=== PATIENT | female | born 1945 | race Caucasian/White ===

== ENCOUNTER → 2019-10-10 10:35 | Outpatient (CLI) | payer MEDICARE, SELFPAY ==
[2019-10-11 20:29] LABS: COVID19 Sendout Not Detected (Not Detect)
== END ==
PROVIDERS: Family Provider Family Medicine; PCP Family Medicine; Visit Provider Nurse Practitioner
DX: Z11.59 Encounter for screening for other viral diseases (principal)
CPT/HCPCS: 87635

== ENCOUNTER 2019-10-14 11:49 | Inpatient (IN) | payer MEDICARE, SELFPAY ==
[2019-10-06 08:36] VITALS: BMI 31.7
[2019-10-13] VITALS (12 sets, daily range): BP systolic 139–172; BP diastolic 61–85; PULSE 66–80; RESP 13–23; TEMP 36.1–36.7; O2SAT 97–98; BMI 33.1
--- NOTE | 2019-10-13 | DI.RAD.S_ITS ---
PROCEDURE: XR KNEE LT 1TO2V INDICATIONS: LEFT TOTAL KNEE TECHNIQUE: 2 view(s) of the knee acquired. COMPARISON: None. FINDINGS: Bones: Patient is status post knee joint arthroplasty. Hardware components are in expected positions. Visualized bony structures are intact. Soft tissues: Overlying postoperative changes are noted. IMPRESSION: Expected immediate postoperative appearance, status post total left knee arthroplasty. Dictated by: Twin Verma M.D. on 10/13/2019 at 15:25 Approved by: Twin Verma M.D. on 10/13/2019 at 15:25
[2019-10-13] MEDS: LACTATED RINGERS 1,000 ML 42 ML IV (11:36)
[2019-10-13] MEDS: CELECOXIB 200 MG CAPSULE PO (11:49)
[2019-10-13] MEDS: ACETAMINOPHEN 325 MG TABLET 975 MG PO (11:49)
--- NOTE | 2019-10-13 12:33 | PM.PREOP ---
Pre-operative Note COVID-19 COVID-19 status: Negative Result date/Date tested (Pos, Neg/Pending): 10/10/19 Interval Note History & Physical reviewed/Exam performed by Physician: Yes Changes to H&P: No
--- NOTE | 2019-10-13 12:34 | P.OP_ITS ---
Operative Date/Time/Diagnoses Date of procedure: 10/13/19 Time of procedure: 14:48 Pre-op diagnosis: Left knee osteoarthritis Post-op diagnosis: same Procedure & Clinicians Procedure: Left total knee arthroplasty Same procedure as scheduled: Yes Indications: The patient presents today for total knee arthroplasty after failure of conservative treatment. The nature of the procedure including the risks and benefits, alternatives, postoperative course and expected outcome were discussed and all questions answered. Consent was obtained. Operative site confirmed and marked. Surgeon: Lloyd Woodson Director Of Procurement: To [employer] Anesthesia Type: General, Spinal and Local Operative Notes Findings: The patient had a good extension but poor flexion even under anesthesia. The knee would only flex to about 80?. A standard distal femoral cut was made. The femoral component was slightly undersized and translated 1.5 mm anteriorly to decompress the flexion space. A 11 mm cut was made off the le ss affected lateral side. The arthritis was much more severe than expected from the radiographs. The knee easily came out into full extension and could be flexed beyond 120? which was primarily limited by soft tissue impingement. Patellar tracking was excellent. Closure Type: primary Specimen(s): none sent Prosthetic devices, grafts, tissues, transplants, or devices: [employer] [facility] BCS: 5 femoral component, 3 tibial component, 10 mm BCS polyethylene tray and 32 x 9 mm round patella Applied: implant(s) Estimated Blood Loss (mL): 5 Blood products transfused: none Tourniquet time (min): 55 Procedure in detail: The patient was taken to the operative suite and placed under anesthesia. The patient was given prophylactic antibiotics prior to s urgery. The patient was also given tranexamic acid, 1 g, just prior to surgery for postoperative hemostasis. The lateral knee was prepped and the joint injected with 20 mL of 1% Lidocaine with epinephrine. The knee was then prepped and draped in usual sterile fashion. The leg was exsanguinated with an Esmarch dressing and the tourniquet raised to 300 torr. A 15 cm anterior incision was made. Next a medial trivector arthrotomy was made. The extensor mechanism was marked to ensure accurate repair. Initial exposing dissection was carried out medially and laterally. The knee was then flexed and the intramedullary femoral guide db placed. The distal femoral cut was made in 6? of valgus at the +0 position. The femoral size was measured and the appropriate cutting block was then placed and the anterior, posterior and chamfer cuts made. The femoral component was downsized slightly and translated anteriorly 1.5 mm to decompress the flexion space given her poor preoperative motion. The intramedullary tibial alignment db was then placed. The guide was set to remove approximately 11 mm from the less affected lateral side. The proximal tibial cut was then made with an oscillating saw. All meniscus and bony debris was then removed. Posterior femoral osteophytes removed with a curved osteotome. Flexion extension gaps were checked. No specific balancing was required other than routine exposure and removal of osteophytes. The soft tissues were then injected with a combination of 20 mL of half percent Marcaine with epinephrine and 20 mL of Exparel. The trial components were then placed. The knee was then extended and the patellar thickness was measured and a cut made removing approximately 9 mm of bone. The patella was then sized and drilled. Some excess lateral bone was excised and the patellofemoral ligament released. The knee went into full extension and flexion beyond 120?. There was excellent medial-lateral balance throughout motion. Patellar tracking was excellent. The trial components were removed and the knee was cleansed with Pulsavac irrigation and dried. The final components were cemented with high viscosity vacuum mixed bone cement with antibiotics. The joint was filled with a dilute Betadine solution. The knee was held in extension and the patellar clamped until the cement was adequately cured. The knee was then irrigated. The extensor mechanism was closed with 5 interrupted #1 Vicryl sutures and a running Quill suture at approximately 90 degrees of flexion. The joint was then injected with a combination of 1 g of tranexamic acid and 20 mL of quarter percent Marcaine with epinephrine. The subcutaneous tissue was closed with 2 0 Vicryl. The skin was closed with absorbable subcuticular sutures and surgical adhesive. An Aquacel dressing and Eagle wrap were then applied. The patient tolerated the procedure well and was returned to recovery room in good condition. Complications: none Post-operative Condition: stable Disposition: PACU Plan for aftercare: [facility] Protocol.
[2019-10-13] MEDS: CEFAZOLIN 2 GM/100 ML FROZ.PIGGY IV ×2 (13:21→20:40)
[2019-10-13] MEDS: LIDOCAINE 1% W/EPI 20 ML INJ (13:25)
[2019-10-13] MEDS: TRANEXAMIC ACID 1,000 MG VIAL 1000 MG IV (13:30)
--- NOTE | 2019-10-13 13:48 | SUR.OPER ---
Supine on padded OR bed. Pillow under head, arms secured on padded armboards <90 degree abduction. Safety belt across torso. Non-operative leg secured with tape over blanket over lower leg. Operative leg secured in DeMayo/Jun positioner. Foam padded brace at thigh of operative leg.
[2019-10-13] MEDS: BUPIVACAINE 0.25% W/ EPI (PF) 40 ML, BUPIVACAINE LIPOSOME 266 MG, SODIUM CHLORIDE 0.9% ... INJ (13:54)
[2019-10-13] MEDS: BUPIVACAINE 0.25% W/ EPI (PF) 20 ML, TRANEXAMIC ACID 1,000 MG, SODIUM CHLORIDE 0.9% 10 ML INJ (13:55)
[2019-10-13] MEDS: SODIUM CHLORIDE IRRIG SOLUTION 250 ML, POVIDONE-IODINE SPONGE STICKS 1 APPLIC IRR (13:57)
[2019-10-13] MEDS: LACTATED RINGERS 1,000 ML 100 ML IV (16:45)
[2019-10-13] MEDS: CARBIDOPA-LEVODOPA 25/100 TABLET 0.5 EACH PO (16:45)
[2019-10-13] MEDS: ACETAMINOPHEN 325 MG TABLET 650 MG PO ×2 (16:46→20:39)
[2019-10-13] MEDS: IBUPROFEN 400 MG TABLET PO ×2 (16:46→20:40)
[2019-10-13] MEDS: OXYCODONE IR 5 MG TABLET PO (18:08)
--- NOTE | 2019-10-13 20:09 | PC.NURSE ---
Patient resting in bed since back from PACU. Up to use the BSC to void, gait unsteady. Patient using bed burris until PT sees patient in the am. Pain controlled with oxycodone 5mg po. Patient has been A&O, calm and cooperative.
[2019-10-13] MEDS: ASPIRIN EC 81 MG TABLET PO (20:39)
[2019-10-13] MEDS: POTASSIUM CHLORIDE 10 MEQ TAB PO (20:39)
[2019-10-13] MEDS: DOCUSATE 100 MG CAPSULE PO (20:40)
[2019-10-14] VITALS (7 sets, daily range): BP systolic 112–143; BP diastolic 52–75; PULSE 65–77; RESP 16–18; TEMP 36.5–37.1; O2SAT 96–99
[2019-10-14] MEDS: IBUPROFEN 400 MG TABLET PO ×7 (00:48→23:55)
[2019-10-14] MEDS: LACTATED RINGERS 1,000 ML 100 ML IV (03:39)
[2019-10-14] MEDS: CEFAZOLIN 2 GM/100 ML FROZ.PIGGY IV (04:55)
[2019-10-14 05:45] LABS: Hematocrit 26.7 % (36-46)
--- NOTE | 2019-10-14 06:43 | P.PN_ITS ---
Subjective Subjective Date Patient Seen: 10/14/19 Time Patient Seen: 07:15 Interval history: Jessica is doing relatively well today. She just took some pain medication. Her pain has been reasonably well controlled. She is planning on discharge to a group home facility as she does not have much help from home. This is what she did after her total hip replacements. Exam Vital Signs (past 8 hours): - 10/13/19 23:15 10/14/19 03:00 Temperature 97.9 F 98.0 F Pulse Rate 66 71 Respiratory Rate 18 18 Blood Pressure 144/73 H 129/70 Pulse Oximetry 97 96 Oxygen Delivery Method Room Air Oxygen Flow Rate 0 Narrative Exam Narrative: The dressing is intact. There is expected swelling. The leg is neurovascularly intact. Objective Labs Result Diagrams: 10/14/19 05:25 Labs: Laboratory Results - last 24 hr 10/14/19 05:25 Hgb 9.0 L Hct 26.7 L Assessment & Plan Post-op Postoperative Procedures: Procedures Operation Date: 10/13/19 12:45 Actual Procedures Side Surgeon p Total Knee Arthroplasty Left Lloyd Woodson MD Postoperative day: 1 Postoperative plan narrative: Patient is progressing as expected after surgery. She would like to go to a group home facility which is reasonable given her situation. Discharge planning will work with her to see if she can go earlier needs to stay the full 3 days. Time Spent With Patient Time with patient: less than 15 minutes Quality VTE Deep Vein Thrombosis/Pulmonary Embolism Present on Admission: No
[2019-10-14] MEDS: OXYCODONE IR 5 MG TABLET PO ×4 (06:57→19:59)
[2019-10-14] MEDS: DOCUSATE 100 MG CAPSULE PO ×2 (09:01→19:59)
[2019-10-14] MEDS: POTASSIUM CHLORIDE 10 MEQ TAB PO ×2 (09:01→20:01)
[2019-10-14] MEDS: ACETAMINOPHEN 325 MG TABLET 650 MG PO ×3 (09:01→19:59)
[2019-10-14] MEDS: FUROSEMIDE 40 MG TABLET PO (09:02)
[2019-10-14] MEDS: ASPIRIN EC 81 MG TABLET PO ×2 (09:02→19:59)
[2019-10-14] MEDS: CARBIDOPA-LEVODOPA 25/100 TABLET 1 EACH PO (09:03)
--- NOTE | 2019-10-14 09:36 | PT.IIE ---
Current Diagnoses Bilateral primary osteoarthritis of knee (10/13/19) Surgery Performed Operation Date: 10/13/19 12:45 Actual Procedures p Total Knee Arthroplasty(Left) - Lloyd Woodson MD Surgical History (Last Updated 10/06/19 @ 09:19 by Bambi Curtis RN) History of bilateral tubal ligation (Acute) History of total left hip arthroplasty (Acute) History of total right hip arthroplasty (Acute) Hx of bilateral cataract extraction (Acute) Hx of cholecystectomy (Acute) Hx of repair of left rotator cuff (Acute) Hx of tonsillectomy (Acute) Medical History (Last Updated 10/06/19 @ 09:21 by Bambi Curtis RN) Dementia (Acute) Easy bruisability (Acute) Edema (Acute) Hearing impaired (Acute) Heart murmur (Acute) HTN (hypertension) (Acute) ALEX on CPAP (Acute) Pre-diabetes (Acute) RLS (restless legs syndrome) (Acute) Physical Therapy Inpatient Evaluation/Re-Eval M1 PT/OT-IP Prior Functional Status Start: 10/14/19 12:20 Freq: NEEDED Status: Active Protocol: Document 10/14/19 09:36 AB (Rec: 10/14/19 12:36 AB [id number]) Medical Review Prior Functional Status Medical History Reviewed Yes Communication able to make needs known Mobility and Gait pt stated that she is independent with all mobilities and ambulation without AD but has used a FWW for th elast month due to LE weakness Social History Household Members spouse,children Living Arrangements House Number of Floors (Floors) One Floor Number of Stairs To Enter/Railing? 1 step to enter Home Environment High Toilet,Walk in Shower,Tub /Shower,Built-In Shower Seat Home Equipment Front Wheel Walker,Straight Cane,Shower Seat with Backrest ,Hand Held Shower,Grab Bars In Shower Additional Social History Comment has safety bars in the toilet pt lives with her spouse and daughter; daughter works and will not be able to assist pt ; spouse is also not going to be able to assist pt due to his own medical issues pt has been sleeping on her recliner chair and plans to continue sleeping on chair upon d/c M2 PT-IP Current Condition Start: 10/14/19 12:20 Freq: NEEDED Status: Active Protocol: Document 10/14/19 09:36 AB (Rec: 10/14/19 12:36 AB [email or web address]) Physical Therapy Current Condition Current Condition Evaluation Date 10/14/19 Treatment Diagnosis s/p L TKA; difficulty in walking Onset Date 10/13/19 Weight Bearing Status Weight Bearing Status Weight Bear as Tolerated Allowed Weight Bearing Amount (enter % LLE WBAT or #) (%) M3 PT-IP Subjective Start: 10/14/19 12:20 Freq: NEEDED Status: Active Protocol: Document 10/14/19 09:36 AB (Rec: 10/14/19 12:36 AB [email or web address]) Subjective Physical Therapy Visit Type Type Initial Evaluation Visit Start Time 09:36 Visit Stop Time 10:24 Total Visit Minutes 48 Number of BALANCING MACHINE OPERATOR Visits 0 Physical Therapy Visit Comments Patient Comments pt is agreeable to do PT Therapy Pain Assessment Pain When Pain Assessed At Rest Pain Present Pain Present Pain Reported Location Left Knee Intensity 3 Scale Used Numeric (0 - 10) Pain Management Techniques Apply Cold,Modification of Treatment,Re-positioning, Timing of Activity with Medications M4 PT-IP Mobility and Gait Start: 10/14/19 12:20 Freq: NEEDED Status: Active Protocol: Document 10/14/19 09:36 AB (Rec: 10/14/19 12:36 AB [email or web address]) PT-Bed Mobility Assessment Supine to Sit Supine to Sit Standby Assistance,Head of Bed Elevated Scooting Scooting to Edge of Bed Maximum Assistance PT-Transfer Assessment Sit to and From Stand Sit to and from Stand Maximum Assistance,1 Person Assistance,Use of Upper Extremities Equipment Transfer Assistive Device Gait Belt,Front Wheeled Walker Orthotic/Prosthetic Devices or Brace: No Transfers Transfer Destination Chair Transfer Technique ambulated using FWW Transfer Ability Level of Assist Maximum Assistance,1 Person Assistance,Use of Upper Extremities Comments Mobility Comments pt is agreeable to do PT. completed L heel slides prior to mobility. pt with increase tightness on L knee. completed supine to sit with HOB elevated SBA. pt was able to sit on EOB CGA. required max A to scoot to EOB. completed sit to stand max A and cues. presents with increase posterior lean requiring max A for stability. instructed pt to sit back down. pt educated and instructed again for sit to stand and completed max A and max cues. continues to have increase posterior LOB requiring max A for repostioning and steadiness. pt was able to ambulate 5 ft using fWW max A and max cues. pt agreed to stay up on chair . call light and table placed within reach. Gait Assessment Gait Gait Assistance Required: Maximum Assistance,1 Person Assist Distance (Feet) 5 Able to Maintain Weight Bearing Status Yes During Gait Assistive Devices Assistive Device Gait Belt,Front Wheeled Walker Orthotic/Prosthetic Devices or Brace: No Gait Deviations General Gait Pattern Antalgic,Decreased Stride Length,Decreased Feet Clearance,Step-to Gait,Wide Based Gait Factors Limiting Gait Function Factors Limiting Gait Function Decreased Activity Tolerance, Decreased Sensation,Decreased Strength,Difficulty Following Directions,Limited Range of Motion,Pain,Poor Balance,Poor Safety Awareness PT-Balance Assessment Sitting Balance and Reactions Static Sitting Balance Ability Good Dynamic Sitting Balance Ability Fair Standing Balance and Reactions Static Standing Balance Ability Poor Dynamic Standing Balance Ability Poor Device Used FWW M5 PT-IP Objective Assessments Start: 10/14/19 12:20 Freq: NEEDED Status: Active Protocol: Document 10/14/19 09:36 AB (Rec: 10/14/19 12:36 [email or web address]) Orientation Orientation/Cognition Level of Alertness Alert Orientation Name,Place,Situation Language Function Ability Hard of Hearing Safety Awareness Decreased Safety Awareness Gross Range of Motion Lower Extremity ROM Assessment Left Impaired Impairments PROM: L knee flexion: ~ 50 deg Strength Lower Extremity Strength Assessment Bilaterally Impaired Comments Strength Comments RLE: 3+/5 LLE: 3+/5 Sensation Assessment Sensation Light Touch Impaired Proprioception (Position) Impaired Sensation Description Numbness Comments Sensation Comments stated decrease sensation on B feet and sometimes increases up to midleg area M6 PT-IP Treatment Start: 10/14/19 12:20 Freq: NEEDED Status: Active Protocol: Document 10/14/19 09:36 AB (Rec: 10/14/19 12:36 [email or web address]) Physical Therapy Treatment Exercises Exercises Heel Slides Education Education Provided Precautions,Weight Bearing Status,Post-Op Packet,Safety M7 PT-IP Assessment and Plan Start: 10/14/19 12:20 Freq: NEEDED Status: Active Protocol: Document 10/14/19 09:36 AB (Rec: 10/14/19 12:36 [email or web address]) PT Summary Assessment and Plan Potential Rehabilitation Potential Good Status of Condition at Evaluation Evolving Summary Impairments Pain,ROM,Strength,Balance, Coordination,Sensation,Tone, Cognition,Bed Mobility, Transfers,Gait,Activity Tolerance Assessment Summary pt requiring max A and max cues with all tasks. pt has family at home but daughter goes to work and pt's spouse has his own medical issues and will not be able assist pt. pt needs to be more independent than current level to be able to go home safely. Pt will require SNF rehab to improve strength and functional mobility. Goals Bed Mobility Goal Independent Transfer Goal Contact Guard Assistance,Front Wheeled Walker Gait Goal Contact Guard Assistance,Front Wheel Walker Gait Distance 100 Other Goals up/down 1 step using FWW CGA Days to Meet Goals 5 Frequency of Treatment Frequency Of Treatment Twice a Day Treatment Plan Physical Therapy Treatment Plan Bed Mobility Training,Transfer Training,Gait Training, Therapeutic Exercise,Balance Retraining,Post Op Education, Discharge Planning,Hot or Cold Pack,Neuromuscular Re-ed, Coordination Retraining,Manual Therapy Other Recommendations and Next Treatment ambulation, transfers Focus Recommendations To Nursing Amount of Assist Needed 1 Person Assist Discharge Recommendations PT Discharge Recommendations SNF Rehab Transportation Needs at Discharge Wheelchair/Cabulance
[2019-10-14] MEDS: polyethylene glycoL 3350 17 GM POWD.PACK PO (11:24)
[2019-10-14] MEDS: CARBIDOPA-LEVODOPA 25/100 TABLET 0.5 EACH PO ×2 (13:06→17:00)
--- NOTE | 2019-10-14 13:30 | PT.IPTN ---
Current Diagnoses Bilateral primary osteoarthritis of knee (10/14/19) Surgery Performed Operation Date: 10/13/19 12:45 Actual Procedures p Total Knee Arthroplasty(Left) - Lloyd Woodson MD Physical Therapy Treatment Note M2 PT-IP Current Condition Start: 10/14/19 12:20 Freq: NEEDED Status: Active Protocol: Document 10/14/19 09:36 AB (Rec: 10/14/19 12:36 AB [email or web address]) Physical Therapy Current Condition Current Condition Evaluation Date 10/14/19 Treatment Diagnosis s/p L TKA; difficulty in walking Onset Date 10/13/19 Weight Bearing Status Weight Bearing Status Weight Bear as Tolerated Allowed Weight Bearing Amount (enter % LLE WBAT or #) (%) M3 PT-IP Subjective Start: 10/14/19 12:20 Freq: NEEDED Status: Active Protocol: Document 10/14/19 13:30 AB (Rec: 10/14/19 14:55 AB [email or web address]) Subjective Physical Therapy Visit Type Type Treatment Note Visit Start Time 13:30 Visit Stop Time 13:59 Total Visit Minutes 29 Number of BULK STATION AGENT Visits 0 Physical Therapy Visit Comments Patient Comments pt is agreeable to do PT Therapy Pain Assessment Pain When Pain Assessed At Rest Pain Present Pain Present Pain Reported Location Left Knee Intensity 4 Scale Used Numeric (0 - 10) Pain Management Techniques Re-positioning,Timing of Activity with Medications M4 PT-IP Mobility and Gait Start: 10/14/19 12:20 Freq: NEEDED Status: Active Protocol: Document 10/14/19 13:30 AB (Rec: 10/14/19 14:55 AB [email or web address]) PT-Bed Mobility Assessment Supine to Sit Supine to Sit Standby Assistance Sit to Supine Sit to Supine Contact Guard Assistance Scooting Scooting to Edge of Bed Minimal Assistance PT-Transfer Assessment Sit to and From Stand Sit to and from Stand Moderate Assistance,Maximum Assistance,1 Person Assistance ,Use of Upper Extremities Equipment Transfer Assistive Device Gait Belt,Front Wheeled Walker Orthotic/Prosthetic Devices or Brace: No Comments Mobility Comments pt completed supine to sit SBA with HOB elevated. pt was able to scoot on EOB min A and cues. completed sit to stand max A and max cues. pt continues to have increase posterior trunk leaning requiring max A and max cues. pt ambulated ~ 12 ft using FWW max A and max cues. pt has decrease motor planning and required cues for safety. Gait Assessment Gait Gait Assistance Required: Moderate Assistance,Maximum Assistance,1 Person Assist Distance (Feet) 12 Able to Maintain Weight Bearing Status Yes During Gait Assistive Devices Assistive Device Gait Belt,Front Wheeled Walker Orthotic/Prosthetic Devices or Brace: No Gait Deviations General Gait Pattern Antalgic,Decreased Stride Length,Decreased Feet Clearance,Step-to Gait,Wide Based Gait Factors Limiting Gait Function Factors Limiting Gait Function Decreased Activity Tolerance, Decreased Sensation,Decreased Strength,Difficulty Following Directions,Limited Range of Motion,Pain,Poor Balance,Poor Safety Awareness,Respiratory Distress Comments Gait Comments pls refer to mobility section for details M5 PT-IP Objective Assessments Start: 10/14/19 12:20 Freq: NEEDED Status: Active Protocol: Document 10/14/19 09:36 AB (Rec: 10/14/19 12:36 AB [email or web address]) Orientation Orientation/Cognition Level of Alertness Alert Orientation Name,Place,Situation Language Function Ability Hard of Hearing Safety Awareness Decreased Safety Awareness Gross Range of Motion Lower Extremity ROM Assessment Left Impaired Impairments PROM: L knee flexion: ~ 50 deg Strength Lower Extremity Strength Assessment Bilaterally Impaired Comments Strength Comments RLE: 3+/5 LLE: 3+/5 Sensation Assessment Sensation Light Touch Impaired Proprioception (Position) Impaired Sensation Description Numbness Comments Sensation Comments stated decrease sensation on B feet and sometimes increases up to midleg area M6 PT-IP Treatment Start: 10/14/19 12:20 Freq: NEEDED Status: Active Protocol: Document 10/14/19 13:30 AB (Rec: 10/14/19 14:55 AB [email or web address]) Physical Therapy Treatment Exercises Exercises Heel Slides Education Education Provided Safety Other Treatments Other Treatment Performed completed heel slides with end range hold. pt continues to be limited knee flexion to ~ 40-50 degrees PROM. pt educated on heel slides and to do intermittent movement as much as possible on L knee M7 PT-IP Assessment and Plan Start: 10/14/19 12:20 Freq: NEEDED Status: Active Protocol: Document 10/14/19 13:30 AB (Rec: 10/14/19 14:55 AB [email or web address]) PT Summary Assessment and Plan Potential Rehabilitation Potential Good Summary Impairments Pain,ROM,Strength,Balance, Coordination,Sensation,Tone, Cognition,Bed Mobility, Transfers,Gait,Activity Tolerance Progress Towards Goals Slow Progress due to Pain,Slow Progress due to Activity Tolerance,Slow Progress - Other Assessment Summary pt progressing slowly with mobility. able to walk more this afternoon but still limited and was only able to complete 12 ft; continues to require max A with sit to stand and mod to max A and max cues with ambulation. pt will require SNF rehab to improve strength and functional independence. Goals Bed Mobility Goal Independent Transfer Goal Contact Guard Assistance,Front Wheeled Walker Gait Goal Contact Guard Assistance,Front Wheel Walker Gait Distance 100 Other Goals up/down 1 step using FWW CGA Days to Meet Goals 5 Frequency of Treatment Frequency Of Treatment Twice a Day Treatment Plan Physical Therapy Treatment Plan Bed Mobility Training,Transfer Training,Gait Training, Therapeutic Exercise,Balance Retraining,Post Op Education, Discharge Planning,Hot or Cold Pack,Neuromuscular Re-ed, Coordination Retraining,Manual Therapy Other Recommendations and Next Treatment ambulation, transfers Focus Recommendations To Nursing Amount of Assist Needed 1 Person Assist Discharge Recommendations PT Discharge Recommendations SNF Rehab Transportation Needs at Discharge Wheelchair/Cabulance
--- NOTE | 2019-10-14 15:14 | CM.IDA ---
Initial DCP Assessment Note Patient is a 74 yo female, resident of [place]. Patient is POD#1 from left knee surgery with Dr Woodson. Patient has been switched from SDC to inpatient status as of today 10.14.19. Patient w/Parkinson's Disease and Parkinson's dementia per notes (mild). Met w/patient this afternoon, spouse Mina joined by phone. Introduced HIGHWAY MAINTENANCE WORKER role. Patient lives at home w/her spouse and adult dtr, who works time stamp assembler in [place]. Spouse Mina explains to this HIGHWAY MAINTENANCE WORKER that caring for patient, leading up to this surgery, has become difficult for him d/t his own health issues. D/t patient's pain, patient has become fairly sedentary at home requiring assist for ADLs; bathing, dressing, chores/cooking. Both patient and spouse hopeful patient can DC to [facility]. Spouse has contacted Nallley at [facility] to request bed hold. Contacted August and she confirmed she had tentatively held bed, now confirms that patient has a bed available Friday, will need updated COVID-19 kenji done before DC. P: DC expected Friday, to [facility] via w/c. HIGHWAY MAINTENANCE WORKER team following closely. PASRR still needed. CATINA Tamez Discharge Planning/Care Management CM Discharge Assessment Start: 10/14/19 15:10 Freq: Status: Active Protocol: Document 10/14/19 15:10 [email or web address] (Rec: 10/14/19 15:14 [email or web address] [id number]) Discharge Planning Assessment Assigned Special Certificate Dictator CATINA Fairchild DPOA/Assigned Designee Name Mina Parada, spouse Contact Information [phone] Advance Directives? Yes Advance Directives on File No History Provided By Patient,Significant Other Prior Living Arrangements House Household Members spouse,children Independent with ADL's No: Spouse needs to assist recently d/t pain Is patient alert and oriented? Yes Needs Assistance With Bathing,Grooming,Meal Prep, Managing Medications,Home Chores / Shopping Patient/Family Preference Alf Facility Barriers to Discharge Yes Comment Spouse and dtr unable to assist, patient has Parkinsons w/some dementia and requiring max assist and max cues today during PT eval Discharge Plan Alf Facility Transportation Arrangement Likely w/c Referrals Initiated Alf Additional Comment [facility] per patient/spouse request
[2019-10-14] MEDS: SODIUM CHLORIDE 0.9% FLUSH 10 ML IV (20:01)
[2019-10-15] MEDS: OXYCODONE IR 5 MG TABLET PO ×4 (04:02→20:10)
[2019-10-15] MEDS: IBUPROFEN 400 MG TABLET PO ×5 (05:39→20:13)
--- NOTE | 2019-10-15 07:37 | PM.PNPO.1 ---
Subjective Subjective Date Patient Seen: 10/15/19 Time Patient Seen: 07:37 Interval history: Jessica is postop day 2 after her left knee replacement. She is having a fair amount of pain but does seem to be better today. She is still having difficulty ambulating. Exam Vital Signs (past 8 hours): Oxygen Delivery Method Room Air Oxygen Flow Rate 0 Narrative Exam Narrative: The dressing is intact. There is expected swelling. The leg is neurovascularly intact. Objective Labs Result Diagrams: 10/14/19 05:25 Assessment & Plan Post-op Postoperative Procedures: Procedures Operation Date: 10/13/19 12:45 Actual Procedures Side Surgeon p Total Knee Arthroplasty Left Lloyd Woodson MD Postoperative day: 2 Postoperative plan narrative: Jessica is progressing reasonably well after surgery but still has difficulty ambulating and will not be able to discharged directly to home. Plan is for skilled nurse facility either tomorrow or Friday. Time Spent With Patient Time with patient: less than 15 minutes Quality VTE Deep Vein Thrombosis/Pulmonary Embolism Present on Admission: No
[2019-10-15 08:24] VITALS: BP 150/77; PULSE 80; RESP 17; TEMP 37.2; O2SAT 95
[2019-10-15] MEDS: DOCUSATE 100 MG CAPSULE PO ×2 (09:13→20:10)
[2019-10-15] MEDS: ACETAMINOPHEN 325 MG TABLET 650 MG PO ×3 (09:13→20:10)
[2019-10-15] MEDS: ASPIRIN EC 81 MG TABLET PO ×2 (09:13→20:10)
[2019-10-15] MEDS: SODIUM CHLORIDE 0.9% FLUSH 10 ML IV ×2 (09:14→20:17)
[2019-10-15] MEDS: POTASSIUM CHLORIDE 10 MEQ TAB PO ×2 (09:14→20:10)
[2019-10-15] MEDS: FUROSEMIDE 40 MG TABLET PO (09:14)
[2019-10-15] MEDS: CARBIDOPA-LEVODOPA 25/100 TABLET 1 EACH PO (09:20)
--- NOTE | 2019-10-15 09:25 | PT.IPTN ---
Current Diagnoses Bilateral primary osteoarthritis of knee (10/14/19) Surgery Performed Operation Date: 10/13/19 12:45 Actual Procedures p Total Knee Arthroplasty(Left) - Lloyd Woodson MD Physical Therapy Treatment Note M2 PT-IP Current Condition Start: 10/14/19 12:20 Freq: NEEDED Status: Active Protocol: Document 10/14/19 09:36 AB (Rec: 10/14/19 12:36 AB [id number]) Physical Therapy Current Condition Current Condition Evaluation Date 10/14/19 Treatment Diagnosis s/p L TKA; difficulty in walking Onset Date 10/13/19 Weight Bearing Status Weight Bearing Status Weight Bear as Tolerated Allowed Weight Bearing Amount (enter % LLE WBAT or #) (%) M3 PT-IP Subjective Start: 10/14/19 12:20 Freq: NEEDED Status: Active Protocol: Document 10/15/19 09:25 AB (Rec: 10/15/19 11:01 AB [email or web address]) Subjective Physical Therapy Visit Type Type Treatment Note Visit Start Time 09:25 Visit Stop Time 10:07 Total Visit Minutes 42 Number of SHAPER MACHINE HAND Visits 0 Physical Therapy Visit Comments Patient Comments pt agreeable to do PT Therapy Pain Assessment Pain When Pain Assessed At Rest Location Left Knee Intensity 6 Scale Used increases to 8/10 with movement Pain Management Techniques Apply Cold,Distraction, Modification of Treatment,Re- positioning,Timing of Activity with Medications M4 PT-IP Mobility and Gait Start: 10/14/19 12:20 Freq: NEEDED Status: Active Protocol: Document 10/15/19 09:25 AB (Rec: 10/15/19 11:01 AB [id number]) PT-Bed Mobility Assessment Supine to Sit Supine to Sit Standby Assistance,Head of Bed Elevated Scooting Scooting to Edge of Bed Minimal Assistance PT-Transfer Assessment Sit to and From Stand Sit to and from Stand Maximum Assistance,1 Person Assistance,Use of Upper Extremities Equipment Transfer Assistive Device Gait Belt,Front Wheeled Walker Orthotic/Prosthetic Devices or Brace: No Transfers Transfer Destination Chair Transfer Technique ambulated using FWW Transfer Ability Level of Assist Moderate Assistance,Maximum Assistance,1 Person Assistance ,Use of Upper Extremities Comments Mobility Comments completed HEP with pt. completed supine to sit SBA with HOB elevated. required min A for scooting to EOB. pt continues to have increase posterior trunk lean in sitting and standing. requiring min A for repositioning in sitting and max cues. completed sit to stand max A and cues. max A to maintain standing balance. cued to COG awareness and correcting posterior trunk lean. pt tends to pull on FWW and not push down for support . max cues needed for positioning and using FWW. ambulated in room using FWW ~ 12 ft mod A and cues. pt requested to sit down. positioned on chair. call light and table placed within reach. Gait Assessment Gait Gait Assistance Required: Moderate Assistance,1 Person Assist Distance (Feet) 12 Able to Maintain Weight Bearing Status Yes During Gait Assistive Devices Assistive Device Gait Belt,Front Wheeled Walker Orthotic/Prosthetic Devices or Brace: No Gait Deviations General Gait Pattern Step-to Gait Factors Limiting Gait Function Factors Limiting Gait Function Decreased Activity Tolerance, Decreased Strength,Difficulty Following Directions, Incoordination,Limited Range of Motion,Pain,Poor Balance, Poor Safety Awareness, Respiratory Distress Comments Gait Comments pls refer to mobility section for details. requires cues for increase LE elevation, maintaining standing balance to decrease posterior trunk lean and for proper use of FWW . Pt refused further activity after ambulation. M5 PT-IP Objective Assessments Start: 10/14/19 12:20 Freq: NEEDED Status: Active Protocol: Document 10/14/19 09:36 AB (Rec: 10/14/19 12:36 AB [id number]) Orientation Orientation/Cognition Level of Alertness Alert Orientation Name,Place,Situation Language Function Ability Hard of Hearing Safety Awareness Decreased Safety Awareness Gross Range of Motion Lower Extremity ROM Assessment Left Impaired Impairments PROM: L knee flexion: ~ 50 deg Strength Lower Extremity Strength Assessment Bilaterally Impaired Comments Strength Comments RLE: 3+/5 LLE: 3+/5 Sensation Assessment Sensation Light Touch Impaired Proprioception (Position) Impaired Sensation Description Numbness Comments Sensation Comments stated decrease sensation on B feet and sometimes increases up to midleg area M6 PT-IP Treatment Start: 10/14/19 12:20 Freq: NEEDED Status: Active Protocol: Document 10/15/19 09:25 AB (Rec: 10/15/19 11:01 AB [email or web address]) Physical Therapy Treatment Exercises Exercises Ankle Pumps,Quad Sets,Heel Slides,Straight Leg Raises, Short Arc Quads Education Education Provided Safety M7 PT-IP Assessment and Plan Start: 10/14/19 12:20 Freq: NEEDED Status: Active Protocol: Document 10/15/19 09:25 AB (Rec: 10/15/19 11:01 [email or web address]) PT Summary Assessment and Plan Potential Rehabilitation Potential Good Summary Impairments Pain,ROM,Strength,Balance, Coordination,Sensation,Tone, Cognition,Bed Mobility, Transfers,Gait,Activity Tolerance Progress Towards Goals Slow Progress due to Pain,Slow Progress due to Medical Issues,Slow Progress due to Activity Tolerance Assessment Summary pt is progressing slowly but continues to require mod to max A with all mobilities. pt stated that she has PD making it hard for her to move. pt will require SNF rehab to improve strength and functional independence. Goals Bed Mobility Goal Independent Transfer Goal Contact Guard Assistance,Front Wheeled Walker Gait Goal Contact Guard Assistance,Front Wheel Walker Gait Distance 100 Other Goals up/down 1 step using FWW CGA Days to Meet Goals 5 Frequency of Treatment Frequency Of Treatment Twice a Day Treatment Plan Physical Therapy Treatment Plan Bed Mobility Training,Transfer Training,Gait Training, Therapeutic Exercise,Balance Retraining,Post Op Education, Discharge Planning,Hot or Cold Pack,Neuromuscular Re-ed, Coordination Retraining,Manual Therapy Other Recommendations and Next Treatment ambulation, transfers Focus Recommendations To Nursing Amount of Assist Needed 1 Person Assist Discharge Recommendations PT Discharge Recommendations SNF Rehab Transportation Needs at Discharge Wheelchair/Cabulance
--- NOTE | 2019-10-15 12:53 | PT.IPTN ---
Current Diagnoses Bilateral primary osteoarthritis of knee (10/14/19) Surgery Performed Operation Date: 10/13/19 12:45 Actual Procedures p Total Knee Arthroplasty(Left) - Lloyd Woodson MD Physical Therapy Treatment Note M2 PT-IP Current Condition Start: 10/14/19 12:20 Freq: NEEDED Status: Active Protocol: Document 10/14/19 09:36 AB (Rec: 10/14/19 12:36 AB [email or web address]) Physical Therapy Current Condition Current Condition Evaluation Date 10/14/19 Treatment Diagnosis s/p L TKA; difficulty in walking Onset Date 10/13/19 Weight Bearing Status Weight Bearing Status Weight Bear as Tolerated Allowed Weight Bearing Amount (enter % LLE WBAT or #) (%) M3 PT-IP Subjective Start: 10/14/19 12:20 Freq: NEEDED Status: Active Protocol: Document 10/15/19 12:53 AB (Rec: 10/15/19 14:11 AB [id number]) Subjective Physical Therapy Visit Type Type Treatment Note Visit Start Time 12:53 Visit Stop Time 13:37 Total Visit Minutes 44 Number of GEOPHYSICS TEACHER Visits 0 Physical Therapy Visit Comments Patient Comments pt is agreeable to do PT Therapy Pain Assessment Pain When Pain Assessed At Rest Location Left Knee Scale Used pain scale not stated Pain Management Techniques Apply Cold,Modification of Treatment,Re-positioning, Timing of Activity with Medications M4 PT-IP Mobility and Gait Start: 10/14/19 12:20 Freq: NEEDED Status: Active Protocol: Document 10/15/19 12:53 AB (Rec: 10/15/19 14:11 AB [id number]) PT-Transfer Assessment Sit to and From Stand Sit to and from Stand Moderate Assistance,Maximum Assistance,1 Person Assistance ,Use of Upper Extremities Gait Assessment Gait Gait Assistance Required: Moderate Assistance,1 Person Assist Distance (Feet) 25 Able to Maintain Weight Bearing Status Yes During Gait Assistive Devices Assistive Device Gait Belt,Front Wheeled Walker Orthotic/Prosthetic Devices or Brace: No Gait Deviations General Gait Pattern Antalgic,Ataxic,Decreased Stride Length,Decreased Feet Clearance Factors Limiting Gait Function Factors Limiting Gait Function Decreased Activity Tolerance, Decreased Strength,Difficulty Following Directions,Limited Range of Motion,Pain,Poor Balance,Poor Safety Awareness Comments Gait Comments pt sitting on chair and agreed to do PT. completed LE exercises sitting: LAQs and heel slide with end range hold . completed sit to stand mod A to max A and max cues. ambulated in room using FWW 25 ft mod A and max cues to increase LE elevation, weight shifting and using UE on FWW for steadiness especially during turns. completed sit <>stand x 5 reps with initial mod to max and after 3 reps, was able to complete with just mod A but continues to require max cues. pt requested to stay up on chair. call light and table placed within reach. M5 PT-IP Objective Assessments Start: 10/14/19 12:20 Freq: NEEDED Status: Active Protocol: Document 10/14/19 09:36 AB (Rec: 10/14/19 12:36 AB [id number]) Orientation Orientation/Cognition Level of Alertness Alert Orientation Name,Place,Situation Language Function Ability Hard of Hearing Safety Awareness Decreased Safety Awareness Gross Range of Motion Lower Extremity ROM Assessment Left Impaired Impairments PROM: L knee flexion: ~ 50 deg Strength Lower Extremity Strength Assessment Bilaterally Impaired Comments Strength Comments RLE: 3+/5 LLE: 3+/5 Sensation Assessment Sensation Light Touch Impaired Proprioception (Position) Impaired Sensation Description Numbness Comments Sensation Comments stated decrease sensation on B feet and sometimes increases up to midleg area M6 PT-IP Treatment Start: 10/14/19 12:20 Freq: NEEDED Status: Active Protocol: Document 10/15/19 12:53 AB (Rec: 10/15/19 14:11 AB [id number]) Physical Therapy Treatment Exercises Exercises Heel Slides,Seated Knee Flexion/Extension Education Education Provided Precautions,Safety M7 PT-IP Assessment and Plan Start: 10/14/19 12:20 Freq: NEEDED Status: Active Protocol: Document 10/15/19 12:53 AB (Rec: 10/15/19 14:11 [id number]) PT Summary Assessment and Plan Potential Rehabilitation Potential Good Summary Impairments Pain,ROM,Strength,Balance, Coordination,Sensation,Tone, Cognition,Bed Mobility, Transfers,Gait,Activity Tolerance Progress Towards Goals Slow Progress due to Pain,Slow Progress due to Medical Issues,Slow Progress due to Activity Tolerance Assessment Summary pt is progressing slowly with mobility but continues to require mod to max A and has decrease activity tolerance. pt has other contributing medical condition affecting progress and mobility. pt will require SNF rehab to improve strength and functional independence. Goals Bed Mobility Goal Independent Transfer Goal Contact Guard Assistance,Front Wheeled Walker Gait Goal Contact Guard Assistance,Front Wheel Walker Gait Distance 100 Other Goals up/down 1 step using FWW CGA Days to Meet Goals 5 Frequency of Treatment Frequency Of Treatment Twice a Day Treatment Plan Physical Therapy Treatment Plan Bed Mobility Training,Transfer Training,Gait Training, Therapeutic Exercise,Balance Retraining,Post Op Education, Discharge Planning,Hot or Cold Pack,Neuromuscular Re-ed, Coordination Retraining,Manual Therapy Other Recommendations and Next Treatment ambulation, transfers Focus Recommendations To Nursing Amount of Assist Needed 1 Person Assist Discharge Recommendations PT Discharge Recommendations SNF Rehab Transportation Needs at Discharge Wheelchair/Cabulance
[2019-10-15] MEDS: CARBIDOPA-LEVODOPA 25/100 TABLET 0.5 EACH PO ×2 (13:06→17:48)
[2019-10-15 13:30] VITALS: BP 105/45; PULSE 66; RESP 18; TEMP 36.8; O2SAT 97
--- NOTE | 2019-10-15 14:45 | OT.IP.EVAL ---
Current Diagnoses Bilateral primary osteoarthritis of knee (10/14/19) Surgery Performed Operation Date: 10/13/19 12:45 Actual Procedures p Total Knee Arthroplasty(Left) - Lloyd Woodson MD Past Medical History (Last Updated 10/06/19 @ 09:21 by Bambi Curtis, RN) Dementia (Acute) Easy bruisability (Acute) Edema (Acute) Hearing impaired (Acute) Heart murmur (Acute) HTN (hypertension) (Acute) ALEX on CPAP (Acute) Pre-diabetes (Acute) RLS (restless legs syndrome) (Acute) Surgical History (Last Updated 10/06/19 @ 09:19 by Bambi Curtis RN) History of bilateral tubal ligation (Acute) History of total left hip arthroplasty (Acute) History of total right hip arthroplasty (Acute) Hx of bilateral cataract extraction (Acute) Hx of cholecystectomy (Acute) Hx of repair of left rotator cuff (Acute) Hx of tonsillectomy (Acute) Occupational Therapy Inpatient Evaluation/Re-Eval M1 PT/OT-IP Prior Functional Status Start: 10/15/19 14:53 Freq: NEEDED Status: Active Protocol: Document 10/15/19 14:27 [facility] (Rec: 10/15/19 15:20 [facility] [id number]) Medical Review Prior Functional Status Medical History Reviewed Yes Communication able to make needs known Mobility and Gait pt stated that she is independent with all mobilities and ambulation without AD but has used a FWW for the last month due to LE weakness Activities of Daily Living and IADL's Pt states was able to do all her ADL's prior to surgery. Social History Household Members spouse,children Living Arrangements House Number of Floors (Floors) One Floor Number of Stairs To Enter/Railing? 1 step to enter Home Environment High Toilet,Walk in Shower,Tub /Shower,Built-In Shower Seat Home Equipment Front Wheel Walker,Straight Cane,Shower Seat with Backrest ,Hand Held Shower,Long Handled Sponge,Long Handled Shoe Horn ,Automatic Engraver,Sock Aid,Grab Bars In Shower Additional Social History Comment has safety bars in the toilet pt lives with her spouse and daughter; daughter works and will not be able to assist pt ; spouse is also not going to be able to assist pt due to his own medical issues pt has been sleeping on her recliner chair and plans to continue sleeping on chair upon d/c M2 OT-IP Current Condition Start: 10/15/19 14:53 Freq: Status: Active Protocol: Document 10/15/19 14:27 [facility] (Rec: 10/15/19 15:20 [facility] [id number]) Occupational Therapy Current Condition Current Condition Evaluation Date 10/15/19 Treatment Diagnosis s/p L TKA, decreased mobility Weight Bearing Status Weight Bearing Status Weight Bear as Tolerated M3 OT- IP Subjective and Pain Start: 10/15/19 14:53 Freq: Status: Active Protocol: Document 10/15/19 14:27 [facility] (Rec: 10/15/19 15:20 [facility] [id number]) OT- Subjective Occupational Therapy Visit Type Type Initial Evaluation Visit Start Time 14:27 Visit Stop Time 14:45 Total Visit Minutes 18 Occupational Therapy Visit Comments Patient Comments Pt agreed to do OT eval. Patient/Caregiver Goals TO go to skilled rehab prior to going home. OT Pain Assessment Pain When Pain Assessed At Rest Pain Present Pain Present Denied Pain M4 OT- IP ADL's Start: 10/15/19 14:53 Freq: Status: Active Protocol: Document 10/15/19 14:27 [facility] (Rec: 10/15/19 15:20 [facility] [id number]) OT LQI-Iyij-Aafsrmu General Evaluation Self-Feeding Ability Independent OT ADL-Grooming Comments OT Grooming Comments Pt states did prior. OT ADL-Dressing General Eval Lower Body Dressing Ability Maximum Assistance Areas Needing Assistance Socks Comments OT Dressing Comments Pt states has all LB dressing equipment from prior hip surgery, to practice for LB dressing needs tomorrow as pt too tired to try today. OT ADL-Toileting Comments OT Toileting Comments Pt not having to go. OT ADL-Bathing Comments OT Bathing Comments NOt at this time. M5 OT- IP IADL's Start: 10/15/19 14:53 Freq: Status: Active Protocol: Document 10/15/19 14:27 [facility] (Rec: 10/15/19 15:20 [facility] [id number]) OT-Instrumental Activities of Daily Living Home Safety Awareness Home Safety Comments At this time pt a bit slow to respond and having a hard time to recall sequence and safety or how to come to stand. Medication Management Medication Management Caregiver Provides Supervision Money Management Money Management Caregiver Provides Assistance Meal Preparation Meal Preparation Caregiver Provides Assist Chief Meteorologist Chief Meteorologist Caregiver Provides Assist M6 OT- IP Functional Cognition Start: 10/15/19 14:53 Freq: Status: Active Protocol: Document 10/15/19 14:27 [facility] (Rec: 10/15/19 15:20 [facility] [email or web address]) Cognitive Factors Limiting Selfcare Function Cognitive Ability Level of Alertness Alert Patient Orientation Name,Place,Situation Attention Span Ability Capable of Focused Attention, Capable of Sustained Attention Ability to Follow Commands Able to Follow One Step Commands Memory Description Short Term Impaired Problem Solving Ability Needs Assist to Identify Solutions Cognitive Comments Cognitive Assessment Comments Pt a bit forgetful and needing reminders for safety cues , sequencing for safety to come to stand to FWW. M7 OT- IP Mobility and Balance Start: 10/15/19 14:53 Freq: Status: Active Protocol: Document 10/15/19 14:27 [facility] (Rec: 10/15/19 15:20 [facility] [email or web address]) OT-Transfer Assessment Sit to and From Stand Sit to and from Stand Moderate Assistance Comments Mobility Comments MODA to stand to FWW. OT- Balance Assessment Sitting Balance and Reactions Static Sitting Balance Ability Good Dynamic Sitting Balance Ability Fair Standing Balance and Reactions Static Standing Balance Ability Poor M8 OT- IP Objective Assessments Start: 10/15/19 14:53 Freq: Status: Active Protocol: Document 10/15/19 14:27 [facility] (Rec: 10/15/19 15:20 [facility] [email or web address]) OT Gross Range of Motion Upper Extremity Range of Motion Assessment Within Functional Limits OT Strength Upper Extremity Strength Assessment Within Functional Limits OT-Muscle Tone Assessment Muscle Tone WNL Yes M9 OT- IP Assessment and Plan Start: 10/15/19 14:53 Freq: Status: Active Protocol: Document 10/15/19 14:27 [facility] (Rec: 10/15/19 15:20 [facility] [email or web address]) OT Summary Assessment and Plan Potential Rehabilitation Potential Good Analytic Complexity at Evaluation Low Summary OT Impairments Pain Progress Towards Goals Slow Progress due to Activity Tolerance,Slow Progress due to Cognition Assessment Summary Pt low complexity and and main barrier are a step, now needing extensive assist for mobility and ADl needs. Pt's not able to physically assist her. Therefore pt will benefit from skilled rehab. Pt has good potential and motivation to get better. Goals Grooming Goal Independent Dressing Goal Independent Toileting Goal Independent Bathing Goal Independent Toilet Transfer Goal Independent Shower Transfer Goal Independent Patient/Caregiver Education Goal Demonstrate Post-Op Precautions Days to Meet Goals 15 Frequency of Treatment Frequency Of Treatment Once a Day Treatment Plan OT Treatment Plan ADL Training,Functional Cognition Training,Functional Mobility,Patient/Family Education,Discharge Planning Other Treatment Recommendations and Next Stand at sink, practice LB Treatment Focus dressing equipment. Discharge Recommendations OT Discharge Recommendations Home with Assistance Home Equipment Needs defer to skilled Transportation Needs at Discharge Private Vehicle,Wheelchair/ Cabulance
[2019-10-15 15:40] VITALS: BP 108/55; PULSE 65; RESP 22; TEMP 36.4; O2SAT 97
--- NOTE | 2019-10-15 15:56 | CM.DPNOTE ---
DCP Cont According to Nallely at [facility], patient has been accepted for admission Friday. Will need updated COVID test. PASRR completed. Need to updated patient and spouse. JW
[2019-10-15 20:00] VITALS: BP 125/69; PULSE 66; RESP 22; TEMP 36.8; O2SAT 100
[2019-10-16] VITALS (8 sets, daily range): BP systolic 120–144; BP diastolic 51–80; PULSE 55–74; RESP 14–18; TEMP 35.8–36.7; O2SAT 96–99
[2019-10-16] MEDS: IBUPROFEN 400 MG TABLET PO ×5 (01:39→17:58)
--- NOTE | 2019-10-16 08:52 | P.DS_ITS ---
History of Present Illness History of Present Illness Date Patient Seen: 10/16/19 Time Patient Seen: 08:52 Chief complaint: Left Total Knee Arthroplasty *OPB* Narrative: The patient presents today for total knee arthroplasty after failure of conservative treatment. The nature of the procedure including the risks and benefits, alternatives, postoperative course and expected outcome were discussed and all questions answered. Consent was obtained. Operative site confirmed and marked. Discharge Providers Provider Date of admission: 10/14/19 11:49 Discharge Date: 10/16/19 Primary care physician: Nazario Marie MD Consults: 10/13/19 15:37 Consult to Discharge Planning Routine Comment: Consult to Physical Therapy Evaluate & Treat Comment: Physician Instructions: postop TKA protocol Consult to Respiratory Therapy Evaluate & Treat Comment: Physician Instructions: Evaluate and treat 10/15/19 11:38 Consult to Occupational Therapy Evaluate & Treat Comment: Physician Instructions: Evaluate and treat Discharge provider: To Delcid PA-C Summary Hospital Course Discharge Diagnosis: Left knee osteoarthritis Hospital Course: rocedure: Left total knee arthroplasty Same procedure as scheduled: Yes Indications: The patient presents today for total knee arthroplasty after failure of conservative treatment. The nature of the procedure including the risks and benefits, alternatives, postoperative course and expected outcome were discussed and all questions answered. Consent was obtained. Operative site confirmed and marked. Surgeon: Lloyd Woodson Adult Neuropsychologist: To Delcid Anesthesia Type: General, Spinal and Local Operative Notes Findings: The patient had a good extension but poor flexion even under anesthesia. The knee would only flex to about 80?. A standard distal femoral cut was made. The femoral component was slightly undersized and translated 1.5 mm anteriorly to decompress the flexion space. A 11 mm cut was made off the less affected lateral side. The arthritis was much more severe than expected from the radiographs. The knee easily came out into full extension and could be flexed beyond 120? which was primarily limited by soft tissue impingement. Patellar tracking was excellent. Closure Type: primary Specimen(s): none sent Prosthetic devices, grafts, tissues, transplants, or devices: [employer] BCS: 5 femoral component, 3 tibial component, 10 mm BCS polyethylene tray and 32 x 9 mm round patella Applied: implant(s) Estimated Blood Loss (mL): 5 Blood products transfused: none Tourniquet time (min): 55 Patient admitted to the hospital for left total knee arthroplasty. Patient consented to the same. Patient taken to the operating room October 13, 2019. Patient back in her room recovering well as in stable condition status post left total knee arthroplasty. Patient has reportedly by physical therapy made slow progress due to pain, slow progress due to medical issues as well as due to activity intolerance. Physical therapy has recommended [facility]. Status at Discharge Cognitive/behavioral status at discharge: at baseline, oriented Functional status at discharge: uses cane/walker Overall status at discharge: patient is progressing back to baseline Time Spent with Patient Time spent: Less than 30 minutes Exam Vital Signs (past 8 hours): - 10/16/19 03:40 10/16/19 07:25 Temperature 97.9 F 98.0 F Pulse Rate 70 74 Respiratory Rate 18 16 Blood Pressure 144/51 H 135/73 Pulse Oximetry 97 98 Oxygen Delivery Method Room Air Oxygen Flow Rate 0 Objective Labs Result Diagrams: 10/14/19 05:25 Discharge Plan Discharge Plan Patient Disposition: SNF Transfer to: [facility] Under care of provider: Dr. Woodson Consult as needed: Dental, Hearing, Podiatry and Vision Discharge comment: DC to SNF in stable condition status post left TKA Discharge orders & Medications Prescriptions: New acetaminophen 325 mg Tablet 650 mg PO TID Qty: 60 RF: 0 aspirin 81 mg Tablet,Delayed Release (Dr/Ec) 81 mg PO BID Qty: 60 RF: 0 ibuprofen 400 mg Tablet 400 mg PO Q4HR Qty: 60 RF: 0 docusate sodium [DOK] 100 mg Capsule 100 mg PO BID Qty: 20 RF: 0 oxycodone 5 mg Tablet 5 mg PO Q3HR PRN (Reason: Pain, Moderate (4-6)) Qty: 60 RF: 0 Continued potassium chloride 10 mEq Capsule, Extended Release 10 meq PO BID RF: 0 furosemide 80 mg Tablet 40 mg PO DAILY RF: 0 carbidopa-levodopa 25-100 mg Tablet 1 tab PO SEEINSTR RF: 0 Discontinued acetaminophen [Acetaminophen Pain Relief] 500 mg Tablet 1,000 mg PO DAILY RF: 0 ibuprofen 200 mg Tablet 200 - 400 mg PO DAILY RF: 0 Follow up/Referrals: Lloyd Woodson MD [Physician] - 2 Weeks Nazario Marie MD [Primary Care Provider] - Discharge Health Status Multidrug resistant organism: No MDRO Diet/Activity/Treatments Diet: Regular Activity: May progress weight-bearing and activity as tolerated. Daily knee range of motion exercises. Cold/Heat Therapy: May ice the knee for 20 minutes at a time as needed for pain Skin/Wound/Dressing Care Report to your healthcare provider any signs of infection, such as:: chills, fever, increased pain, unusual drainage and unusual redness Dressing: May leave dressing in place for 7 days. May shower over the dressing. Special Rehabilitation Services Reason for rehabilitation: Post-operative therapy and Recovery r/t decondition Rehab type: Physical therapy Visit Report/Discharge Packet Instructions: DI for Knee Replacement, DI for Prescription Opioid Use Stand Alone Forms: Surgery Discharge Discharge Data Primary Care Provider: Nazario Marie VTE Deep Vein Thrombosis/Pulmonary Embolism Present on Admission: No
--- NOTE | 2019-10-16 08:55 | P.DS_ITS ---
History of Present Illness History of Present Illness Chief complaint: Left Total Knee Arthroplasty *OPB* Narrative: The patient presents today for total knee arthroplasty after failure of conservative treatment. The nature of the procedure including the risks and benefits, alternatives, postoperative course and expected outcome were discussed and all questions answered. Consent was obtained. Operative site confirmed and marked. Discharge Providers Provider Date of admission: 10/14/19 11:49 Discharge Date: 10/16/19 Primary care physician: Nazario Marie MD Consults: 10/13/19 15:37 Consult to Discharge Planning Routine Comment: Consult to Physical Therapy Evaluate & Treat Comment: Physician Instructions: postop TKA protocol Consult to Respiratory Therapy Evaluate & Treat Comment: Physician Instructions: Evaluate and treat 10/15/19 11:38 Consult to Occupational Therapy Evaluate & Treat Comment: Physician Instructions: Evaluate and treat Discharge provider: To Delcid PA-C Summary Hospital Course Discharge Diagnosis: Left knee DJD Hospital Course: Procedure: Left total knee arthroplasty Same procedure as scheduled: Yes Indications: The patient presents today for total knee arthroplasty after failure of conservative treatment. The nature of the procedure including the risks and benefits, alternatives, postoperative course and expected outcome were discussed and all questions answered. Consent was obtained. Operative site confirmed and marked. Surgeon: Lloyd Woodson [employer] Shift Superintendent: To Delcid Anesthesia Type: General, Spinal and Local Operative Notes Findings: The patient had a good extension but poor flexion even under anest hesia. The knee would only flex to about 80?. A standard distal femoral cut was made. The femoral component was slightly undersized and translated 1.5 mm anteriorly to decompress the flexion space. A 11 mm cut was made off the less affected lateral side. The arthritis was much more severe than expected from the radiographs. The knee easily came out into full extension and could be flexed beyond 120? which was primarily limited by soft tissue impingement. Patellar tracking was excellent. Closure Type: primary Specimen(s): none sent Prosthetic devices, grafts, tissues, transplants, or devices: [employer] BCS: 5 femoral component, 3 tibial component, 10 mm BCS polyethylene tray and 32 x 9 mm round patella Applied: implant(s) Estimated Blood Loss (mL): 5 Blood products transfused: none Tourniquet time (min): 55 Patient admitted to the hospital for left total knee arthroplasty. Patient consented to the same. Patient taken operating room on October 13, 2019 underwent left total knee arthroplasty. Patient back in her room recovering well as in stable condition. Patient has made slow progress mobilizing with physical therapy. Physical therapy is noted patient making slow progress due to pain, slow progress due to medical issues as well as slow progress due to activity intolerance. Physical therapy is recommended [facility]. She remains in stable condition. Status at Discharge Cognitive/behavioral status at discharge: at baseline, oriented Functional status at discharge: uses cane/walker Overall status at discharge: patient is progressing back to baseline Time Spent with Patient Time spent: Less than 30 minutes Exam Vital Signs (past 8 hours): - 10/16/19 03:40 10/16/19 07:25 Temperature 97.9 F 98.0 F Pulse Rate 70 74 Respiratory Rate 18 16 Blood Pressure 144/51 H 135/73 Pulse Oximetry 97 98 Oxygen Delivery Method Room Air Oxygen Flow Rate 0 Narrative Exam Narrative: Pleasant 74-year-old female sitting comfortably in bedside chair in no apparent distress. Dressing clean, dry and intact. Michael dressing is on and functioning. Both legs are warm and dry. Left calf is soft nontender. M otor functions intact bilateral lower extremities. Sensation grossly intact to light touch bilateral lower extremities. Objective Labs Result Diagrams: 10/14/19 05:25 Discharge Assessment & Plan Assessment and Plan Assessment: [facility]charge to [facility]. Discharge Plan Discharge Plan Patient Disposition: SNF Transfer to: [facility] Under care of provider: Dr. Woodson Consult as needed: Dental, Hearing, Podiatry and Vision Discharge comment: DC to SNF in stable condition status post left TKA Discharge orders & Medications Prescriptions: New acetaminophen 325 mg Tablet 650 mg PO TID Qty: 60 RF: 0 aspirin 81 mg Tablet,Delayed Release (Dr/Ec) 81 mg PO BID Qty: 60 RF: 0 ibuprofen 400 mg Tablet 400 mg PO Q4HR Qty: 60 RF: 0 docusate sodium [DOK] 100 mg Capsule 100 mg PO BID Qty: 20 RF: 0 oxycodone 5 mg Tablet 5 mg PO Q3HR PRN (Reason: Pain, Moderate (4-6)) Qty: 60 RF: 0 Continued potassium chloride 10 mEq Capsule, Extended Release 10 meq PO BID RF: 0 furosemide 80 mg Tablet 40 mg PO DAILY RF: 0 carbidopa-levodopa 25-100 mg Tablet 1 tab PO SEEINSTR RF: 0 Discontinued acetaminophen [Acetaminophen Pain Relief] 500 mg Tablet 1,000 mg PO DAILY RF: 0 ibuprofen 200 mg Tablet 200 - 400 mg PO DAILY RF: 0 Follow up/Referrals: Lloyd Woodson MD [Physician] - 2 Weeks Nazario Marie MD [Primary Care Provider] - Discharge Health Status Multidrug resistant organism: No MDRO Diet/Activity/Treatments Diet: Regular Activity: May progress weight-bearing and activity as tolerated. Daily knee r sabino of motion exercises. Cold/Heat Therapy: May ice the knee for 20 minutes at a time as needed for pain Skin/Wound/Dressing Care Report to your healthcare provider any signs of infection, such as:: chills, fever, increased pain, unusual drainage and unusual redness Dressing: May leave dressing in place for 7 days. May shower over the dressing. Special Rehabilitation Services Reason for rehabilitation: Post-operative therapy and Recovery r/t decondition Rehab type: Physical therapy Visit Report/Discharge Packet Instructions: DI for Knee Replacement, DI for Prescription Opioid Use Stand Alone Forms: Surgery Discharge Discharge Data Primary Care Provider: Nazario Marie Quality VTE Deep Vein Thrombosis/Pulmonary Embolism Present on Admission: No
[2019-10-16] MEDS: polyethylene glycoL 3350 17 GM POWD.PACK PO (09:07)
[2019-10-16] MEDS: OXYCODONE IR 5 MG TABLET PO ×4 (09:07→23:33)
[2019-10-16] MEDS: FUROSEMIDE 40 MG TABLET PO (09:07)
[2019-10-16] MEDS: ASPIRIN EC 81 MG TABLET PO ×2 (09:08→20:45)
[2019-10-16] MEDS: DOCUSATE 100 MG CAPSULE PO ×2 (09:08→20:45)
[2019-10-16] MEDS: POTASSIUM CHLORIDE 10 MEQ TAB PO ×2 (09:08→20:45)
[2019-10-16] MEDS: ACETAMINOPHEN 325 MG TABLET 650 MG PO ×3 (09:08→20:45)
[2019-10-16] MEDS: CARBIDOPA-LEVODOPA 25/100 TABLET 1 EACH PO (09:13)
[2019-10-16] MEDS: SODIUM CHLORIDE 0.9% FLUSH 10 ML IV ×2 (09:36→20:47)
--- NOTE | 2019-10-16 10:58 | PT.IPTN ---
Current Diagnoses Bilateral primary osteoarthritis of knee (10/14/19) Surgery Performed Operation Date: 10/13/19 12:45 Actual Procedures p Total Knee Arthroplasty(Left) - Lloyd Woodson MD Physical Therapy Treatment Note M2 PT-IP Current Condition Start: 10/14/19 12:20 Freq: NEEDED Status: Active Protocol: Document 10/14/19 09:36 AB (Rec: 10/14/19 12:36 AB [email or web address]) Physical Therapy Current Condition Current Condition Evaluation Date 10/14/19 Treatment Diagnosis s/p L TKA; difficulty in walking Onset Date 10/13/19 Weight Bearing Status Weight Bearing Status Weight Bear as Tolerated Allowed Weight Bearing Amount (enter % LLE WBAT or #) (%) M3 PT-IP Subjective Start: 10/14/19 12:20 Freq: NEEDED Status: Active Protocol: Document 10/16/19 10:58 AB (Rec: 10/16/19 12:46 AB [email or web address]) Subjective Physical Therapy Visit Type Type Treatment Note Visit Start Time 10:58 Visit Stop Time 11:45 Total Visit Minutes 47 Number of EXAMINATION SUPERVISOR Visits 0 Physical Therapy Visit Comments Patient Comments pt is agreeable to do PT Therapy Pain Assessment Pain When Pain Assessed During Mobility Pain Present Pain Present Pain Reported Location Left Knee Intensity 4 Scale Used Numeric (0 - 10) Pain Management Techniques Apply Cold,Modification of Treatment,Timing of Activity with Medications M4 PT-IP Mobility and Gait Start: 10/14/19 12:20 Freq: NEEDED Status: Active Protocol: Document 10/16/19 10:58 AB (Rec: 10/16/19 12:46 AB [email or web address]) PT-Bed Mobility Assessment Supine to Sit Supine to Sit Minimal Assistance,1 Person Assistance,Head of Bed Elevated,Bedrails Scooting Scooting to Edge of Bed Moderate Assistance PT-Transfer Assessment Sit to and From Stand Sit to and from Stand Minimal Assistance,Moderate Assistance,Maximum Assistance, 1 Person Assistance,Use of Upper Extremities Equipment Transfer Assistive Device Gait Belt,Front Wheeled Walker Orthotic/Prosthetic Devices or Brace: No Transfers Transfer Destination Chair Transfer Technique ambulated using FWW Transfer Ability Level of Assist Moderate Assistance,1 Person Assistance,Use of Upper Extremities Comments Mobility Comments pt completed supine to sit with HOB elevated min A and cues. required cues to keep trunk forward. required mod A for scooting to EOB. completed sit to stand from EOB mod to max A and max cues. continues to have increase posterior LOB with initial standing and requiring max A for stability and max cues. pt ambulated in room using FWW 35 ft mod A and cues to increase LE elevation, moving FWW expecially with turns. completed sit <>stand x 6 reps from chair: required mod A with first 2 reps but able to complete with just min A afterwards. pt with difficulty remembering techniques and requires max cues. pt agreed to stay up on chair. positioned on chair. call light and table placed within reach. Gait Assessment Gait Gait Assistance Required: Moderate Assistance,1 Person Assist Distance (Feet) 35 Able to Maintain Weight Bearing Status Yes During Gait Assistive Devices Assistive Device Gait Belt,Front Wheeled Walker Orthotic/Prosthetic Devices or Brace: No Gait Deviations General Gait Pattern Antalgic,Decreased Stride Length,Decreased Feet Clearance,Step-to Gait Factors Limiting Gait Function Factors Limiting Gait Function Decreased Activity Tolerance, Decreased Strength,Difficulty Following Directions,Limited Range of Motion,Pain,Poor Balance,Poor Safety Awareness Comments Gait Comments pls refer to mobility section for details M5 PT-IP Objective Assessments Start: 10/14/19 12:20 Freq: NEEDED Status: Active Protocol: Document 10/14/19 09:36 AB (Rec: 10/14/19 12:36 AB [email or web address]) Orientation Orientation/Cognition Level of Alertness Alert Orientation Name,Place,Situation Language Function Ability Hard of Hearing Safety Awareness Decreased Safety Awareness Gross Range of Motion Lower Extremity ROM Assessment Left Impaired Impairments PROM: L knee flexion: ~ 50 deg Strength Lower Extremity Strength Assessment Bilaterally Impaired Comments Strength Comments RLE: 3+/5 LLE: 3+/5 Sensation Assessment Sensation Light Touch Impaired Proprioception (Position) Impaired Sensation Description Numbness Comments Sensation Comments stated decrease sensation on B feet and sometimes increases up to midleg area M6 PT-IP Treatment Start: 10/14/19 12:20 Freq: NEEDED Status: Active Protocol: Document 10/16/19 10:58 AB (Rec: 10/16/19 12:46 AB [email or web address]) Physical Therapy Treatment Exercises Exercises Heel Slides Education Education Provided Safety Other Treatments Other Treatment Performed completed heels slides prior to getting up M7 PT-IP Assessment and Plan Start: 10/14/19 12:20 Freq: NEEDED Status: Active Protocol: Document 08/08/20 10:58 AB (Rec: 10/16/19 12:46 AB [email or web address]) PT Summary Assessment and Plan Potential Rehabilitation Potential Good Summary Impairments Pain,ROM,Strength,Balance, Coordination,Sensation,Tone, Cognition,Bed Mobility, Transfers,Gait,Activity Tolerance Progress Towards Goals Slow Progress due to Medical Issues,Slow Progress due to Activity Tolerance Assessment Summary pt continues to require min to max A with mobility and max cues with all tasks. pt with decrease memory affecting carryover of techniques. pt will require SNF rehab to improve strength and mobility. Goals Bed Mobility Goal Independent Transfer Goal Contact Guard Assistance,Front Wheeled Walker Gait Goal Contact Guard Assistance,Front Wheel Walker Gait Distance 100 Other Goals up/down 1 step using FWW CGA Days to Meet Goals 5 Frequency of Treatment Frequency Of Treatment Twice a Day Treatment Plan Physical Therapy Treatment Plan Bed Mobility Training,Transfer Training,Gait Training, Therapeutic Exercise,Balance Retraining,Post Op Education, Discharge Planning,Hot or Cold Pack,Neuromuscular Re-ed, Coordination Retraining,Manual Therapy Other Recommendations and Next Treatment ambulation, transfers Focus Recommendations To Nursing Amount of Assist Needed 1 Person Assist Discharge Recommendations PT Discharge Recommendations SNF Rehab Transportation Needs at Discharge Wheelchair/Cabulance
[2019-10-16] MEDS: CARBIDOPA-LEVODOPA 25/100 TABLET 0.5 EACH PO ×2 (12:12→18:01)
--- NOTE | 2019-10-16 12:20 | OT.IP.TRT ---
Current Diagnoses Bilateral primary osteoarthritis of knee (10/14/19) Surgery Performed Operation Date: 10/13/19 12:45 Actual Procedures p Total Knee Arthroplasty(Left) - Lloyd Woodson MD Occupational Therapy Treatment Note M2 OT-IP Current Condition Start: 10/15/19 14:53 Freq: Status: Active Protocol: Document 10/15/19 14:27 CCC (Rec: 10/15/19 15:20 CCC [email or web address]) Occupational Therapy Current Condition Current Condition Evaluation Date 10/15/19 Treatment Diagnosis s/p L TKA, decreased mobility Weight Bearing Status Weight Bearing Status Weight Bear as Tolerated M3 OT- IP Subjective and Pain Start: 10/15/19 14:53 Freq: Status: Active Protocol: Document 10/16/19 12:26 CGR (Rec: 10/16/19 12:41 CGR [email or web address]) OT- Subjective Occupational Therapy Visit Type Type Progress Note Visit Start Time 11:56 Visit Stop Time 12:20 Total Visit Minutes 24 Occupational Therapy Visit Comments Patient Comments I haven't brushed my teeth or washed my face yet today. OT Pain Assessment Pain When Pain Assessed During Mobility Pain Present Pain Present Pain Reported Location Left Knee Intensity 2 Scale Used Numeric (0 - 10) Management Techniques Modification of Treatment,Re- positioning,Timing of Activity with Medications M4 OT- IP ADL's Start: 10/15/19 14:53 Freq: Status: Active Protocol: Document 10/16/19 12:26 CGR (Rec: 10/16/19 12:41 CGR [email or web address]) OT [id number] General Evaluation Self-Feeding Ability Independent Comments OT Self-Feeding Comments Lunch arrived OT ADL-Grooming General Evaluation Grooming Ability Standby Assistance Areas Needing Assistance Retrieving/Set-up of Grooming Items,Combing/Brushing Hair, Face Washing Comments OT Grooming Comments Standing at sink OT ADL-Oral Care General Eval Oral Care Ability Standby Assistance Areas of Assistance Brushing Teeth Comments Oral Care Comments standing at sink OT ADL-Dressing Comments OT Dressing Comments not performed OT ADL-Toileting General Evaluation Toileting Ability Minimal Assistance Devices Toileting Assistive Devices Commode Comments OT Toileting Comments Pt requests to use the BSC. Pt encouraged to use the toilet but states fatigue after standing at sink. OT ADL-Bathing Comments OT Bathing Comments not performed M5 OT- IP IADL's Start: 10/15/19 14:53 Freq: Status: Active Protocol: Document 10/15/19 14:27 [facility] (Rec: 10/15/19 15:20 [facility] [email or web address]) OT-Instrumental Activities of Daily Living Home Safety Awareness Home Safety Comments At this time pt a bit slow to respond and having a hard time to recall sequnce and safety or how to come to stand. Medication Management Medication Management Caregiver Provides Supervision Money Management Money Management Caregiver Provides Assistance Meal Preparation Meal Preparation Caregiver Provides Assist Learning Manager Learning Manager Caregiver Provides Assist M6 OT- IP Functional Cognition Start: 10/15/19 14:53 Freq: Status: Active Protocol: Document 10/15/19 14:27 [facility] (Rec: 10/15/19 15:20 [facility] [email or web address]) Cognitive Factors Limiting Selfcare Function Cognitive Ability Level of Alertness Alert Patient Orientation Name,Place,Situation Attention Span Ability Capable of Focused Attention, Capable of Sustained Attention Ability to Follow Commands Able to Follow One Step Commands Memory Description Short Term Impaired Problem Solving Ability Needs Assist to Identify Solutions Cognitive Comments Cognitive Assessment Comments Pt a bit forgetful and needing reminders for safety cues , sequencing for safety to come to stand to FWW. M7 OT- IP Mobility and Balance Start: 10/15/19 14:53 Freq: Status: Active Protocol: Document 10/16/19 12:26 CGR (Rec: 10/16/19 12:41 CGR [email or web address]) OT-Transfer Assessment Sit to and From Stand Sit to and from Stand Minimal Assistance Transfers Transfer Ability Minimal Assistance Technique Transfer Destination Bedside Commode,Chair Transfer Technique Stand Step Pivot Devices Transfer Assistive Devices Gait Belt,Front Wheeled Walker Comments Mobility Comments Pt ambulated from chair to sink, then sat on BSC for urination and then return to chair. OT- Gait Assessment Gait Gait Assistance Required: Minimum Assistance Assistive Devices Assistive Device Gait Belt,Front Wheeled Walker Comments Gait Ability Comments very limited and around the room only. OT- Balance Assessment Sitting Balance and Reactions Static Sitting Balance Ability Good Dynamic Sitting Balance Ability Good M8 OT- IP Objective Assessments Start: 10/15/19 14:53 Freq: Status: Active Protocol: Document 10/15/19 14:27 [facility] (Rec: 10/15/19 15:20 [facility] [email or web address]) OT Gross Range of Motion Upper Extremity Range of Motion Assessment Within Functional Limits OT Strength Upper Extremity Strength Assessment Within Functional Limits OT-Muscle Tone Assessment Muscle Tone WNL Yes M9 OT- IP Assessment and Plan Start: 10/15/19 14:53 Freq: Status: Active Protocol: Document 10/16/19 12:26 CGR (Rec: 10/16/19 12:41 CGR [email or web address]) OT Summary Assessment and Plan Potential Rehabilitation Potential Good Analytic Complexity at Evaluation Low Summary OT Impairments Pain Progress Towards Goals Slow Progress due to Activity Tolerance,Slow Progress due to Cognition Assessment Summary Pt is improving with her mobility but with poor endurance and still needs assist for all activities. Pt will benefit from SNF for increased mobility prior to discharge home. Goals Grooming Goal Independent Dressing Goal Independent Toileting Goal Independent Bathing Goal Independent Toilet Transfer Goal Independent Shower Transfer Goal Independent Patient/Caregiver Education Goal Demonstrate Post-Op Precautions Days to Meet Goals 14 Frequency of Treatment Frequency Of Treatment Once a Day Treatment Plan OT Treatment Plan ADL Training,Functional Cognition Training,Functional Mobility,Patient/Family Education,Discharge Planning Other Treatment Recommendations and Next Practice LB dressing equipment Treatment Focus . Discharge Recommendations OT Discharge Recommendations SNF Rehab Home Equipment Needs defer to skilled Transportation Needs at Discharge Wheelchair/Cabulance
--- NOTE | 2019-10-16 13:22 | CM.DPC ---
DCP continued: EMR reviewed: Cm/Rn met with the patient and discussed D/c planning. Updated patient that [facility] accepted admission for friday which will be patients 3 midnights. Patients surgeon put in D/C orders today. hPu/Rn Spoke with provider and let them know that patient can't go to SNF until she has reached her three midnights for medicare. Provider stated understanding and D/C was canceled. Patient should D/C to [facility] friday10/17/2019. Patient stated understanding and agreement with D/C plan. Cm/Rn spoke with patients nurse Naresh TORRES and let him know that patient will need a new COVID test prior to Discharge tomorrow. He stated he would take care of it. CM Department will follow up in the AM to determine if COVID test was complete and its status. Thea Schmidt RN
--- NOTE | 2019-10-16 13:36 | PT.IPTN ---
Current Diagnoses Bilateral primary osteoarthritis of knee (10/14/19) Surgery Performed Operation Date: 10/13/19 12:45 Actual Procedures p Total Knee Arthroplasty(Left) - Lloyd Woodson MD Physical Therapy Treatment Note M2 PT-IP Current Condition Start: 10/14/19 12:20 Freq: NEEDED Status: Active Protocol: Document 10/14/19 09:36 AB (Rec: 10/14/19 12:36 AB [email or web address]) Physical Therapy Current Condition Current Condition Evaluation Date 10/14/19 Treatment Diagnosis s/p L TKA; difficulty in walking Onset Date 10/13/19 Weight Bearing Status Weight Bearing Status Weight Bear as Tolerated Allowed Weight Bearing Amount (enter % LLE WBAT or #) (%) M3 PT-IP Subjective Start: 10/14/19 12:20 Freq: NEEDED Status: Active Protocol: Document 10/16/19 13:36 AB (Rec: 10/16/19 15:12 AB [id number]) Subjective Physical Therapy Visit Type Type Treatment Note Visit Start Time 13:36 Visit Stop Time 14:27 Total Visit Minutes 51 Number of SCIENCE MANAGER Visits 0 Physical Therapy Visit Comments Patient Comments pt is agreeable to do PT Therapy Pain Assessment Pain When Pain Assessed During Mobility Location Left Knee Scale Used pain scale not stated but stated pain is not too bad Pain Management Techniques Apply Cold,Distraction, Modification of Treatment,Re- positioning,Timing of Activity with Medications M4 PT-IP Mobility and Gait Start: 10/14/19 12:20 Freq: NEEDED Status: Active Protocol: Document 10/16/19 13:36 AB (Rec: 10/16/19 15:12 AB [id number]) PT-Bed Mobility Assessment Sit to Supine Sit to Supine Standby Assistance PT-Transfer Assessment Sit to and From Stand Sit to and from Stand Minimal Assistance,1 Person Assistance,Use of Upper Extremities Equipment Transfer Assistive Device Gait Belt,Front Wheeled Walker Orthotic/Prosthetic Devices or Brace: No Transfers Transfer Destination Bed Transfer Technique Stand Step Pivot Transfer Ability Level of Assist Minimal Assistance,1 Person Assistance,Use of Upper Extremities Comments Mobility Comments pt sitting on chair and agreeable to do PT. completed seated heel slides and end range hold. completed sit to stand min A from chair and cues for techniques. ambulated in room using FWW 45ft CGA to min A and cues. completed sit <>stand x 5 reps min A and continues to require max cues for techniques. pt requested to go back to bed and completed step transfer to bed using FWW min A and cues. completed sit to supine SBA with 2 attempts to elevate LE up. positioned pt on bed. call light and table placed within reach. Gait Assessment Gait Gait Assistance Required: Contact Guard Assist,Minimum Assistance,1 Person Assist Distance (Feet) 45 Able to Maintain Weight Bearing Status Yes During Gait Assistive Devices Assistive Device Gait Belt,Front Wheeled Walker Orthotic/Prosthetic Devices or Brace: No Gait Deviations General Gait Pattern Antalgic,Decreased Stride Length,Decreased Feet Clearance,Step-to Gait Factors Limiting Gait Function Factors Limiting Gait Function Decreased Activity Tolerance, Decreased Strength,Difficulty Following Directions,Limited Range of Motion,Pain,Poor Balance,Poor Safety Awareness Comments Gait Comments pls refer to mobility section for details. M5 PT-IP Objective Assessments Start: 10/14/19 12:20 Freq: NEEDED Status: Active Protocol: Document 10/14/19 09:36 AB (Rec: 10/14/19 12:36 [email or web address]) Orientation Orientation/Cognition Level of Alertness Alert Orientation Name,Place,Situation Language Function Ability Hard of Hearing Safety Awareness Decreased Safety Awareness Gross Range of Motion Lower Extremity ROM Assessment Left Impaired Impairments PROM: L knee flexion: ~ 50 deg Strength Lower Extremity Strength Assessment Bilaterally Impaired Comments Strength Comments RLE: 3+/5 LLE: 3+/5 Sensation Assessment Sensation Light Touch Impaired Proprioception (Position) Impaired Sensation Description Numbness Comments Sensation Comments stated decrease sensation on B feet and sometimes increases up to midleg area M6 PT-IP Treatment Start: 10/14/19 12:20 Freq: NEEDED Status: Active Protocol: Document 10/16/19 13:36 AB (Rec: 10/16/19 15:12 [id number]) Physical Therapy Treatment Education Education Provided Safety M7 PT-IP Assessment and Plan Start: 10/14/19 12:20 Freq: NEEDED Status: Active Protocol: Document 10/16/19 13:36 AB (Rec: 10/16/19 15:12 [id number]) PT Summary Assessment and Plan Potential Rehabilitation Potential Good Summary Impairments Pain,ROM,Strength,Balance, Coordination,Sensation,Tone, Cognition,Bed Mobility, Transfers,Gait,Activity Tolerance Progress Towards Goals Slow Progress due to Medical Issues,Slow Progress due to Activity Tolerance Assessment Summary pt progressing slowly with mobility and requires min to mod A but requires max cues for techniques and safety. pt has memory issues and has difficulty with carryover. pt will require SNF rehab to improve safety, strength and mobility. Goals Bed Mobility Goal Independent Transfer Goal Contact Guard Assistance,Front Wheeled Walker Gait Goal Contact Guard Assistance,Front Wheel Walker Gait Distance 100 Other Goals up/down 1 step using FWW CGA Days to Meet Goals 5 Frequency of Treatment Frequency Of Treatment Twice a Day Treatment Plan Physical Therapy Treatment Plan Bed Mobility Training,Transfer Training,Gait Training, Therapeutic Exercise,Balance Retraining,Post Op Education, Discharge Planning,Hot or Cold Pack,Neuromuscular Re-ed, Coordination Retraining,Manual Therapy Other Recommendations and Next Treatment ambulation, transfers Focus Recommendations To Nursing Amount of Assist Needed 1 Person Assist Discharge Recommendations PT Discharge Recommendations SNF Rehab Transportation Needs at Discharge Wheelchair/Cabulance
--- NOTE | 2019-10-16 15:41 | PC.NURSE ---
Addendum entered by Anabelle Ramírez R.N. 10/16/19 21:32: Pt had relatively uneventful evening. Denies discomfort. Dsg to left knee CDI HL LAC intact/patent. Satisfactory post op course. Call light w/in reach, bed alrm on for pt safety. Continue w/plan of care. Original Note: Pt awake, denies discomfort @ this time. SpO2 96% RA, lungs clear, ASAEL Dsg to left knee w/ shadow drainage at proximal & distal ends. HL LC intact/patent. Call light w/in reach, bed alarm on for pt safety.
[2019-10-17 00:30] VITALS: BP 114/67; PULSE 73; RESP 16; TEMP 36.2; O2SAT 94
[2019-10-17] MEDS: IBUPROFEN 400 MG TABLET PO ×3 (00:58→09:19)
[2019-10-17 04:00] VITALS: BP 145/68; PULSE 83; RESP 20; TEMP 36.1; O2SAT 98
[2019-10-17 07:25] VITALS: BP 141/63; PULSE 69; RESP 20; TEMP 36.9; O2SAT 98
--- NOTE | 2019-10-17 08:21 | PM.PNPO.1 ---
Subjective Subjective Date Patient Seen: 10/17/19 Time Patient Seen: 08:21 Interval history: She continues to make slow progress. She has been out of bed with physical therapy but very limited ambulation. Still requiring narcotic pain medication Exam Vital Signs (past 8 hours): - 10/17/19 00:30 10/17/19 04:00 Temperature 97.2 F L 97.0 F L Pulse Rate 73 83 Respiratory Rate 16 20 Blood Pressure 114/67 145/68 H Pulse Oximetry 94 98 Oxygen Delivery Method CPAP Oxygen Flow Rate 0 Const Orientation: alert and oriented x3 Extrem Other: Left knee minimal dry drainage. 5/5 motor distally. Soft calf Objective Labs Result Diagrams: 10/14/19 05:25 Assessment & Plan Post-op Postoperative Procedures: Procedures Operation Date: 10/13/19 12:45 Actual Procedures Side Surgeon p Total Knee Arthroplasty Left Lloyd Woodson MD she is making slow progress after left total knee replacement. Plan is for discharge to longterm today. Waiting on repeat negative Covid test. Quality VTE Deep Vein Thrombosis/Pulmonary Embolism Present on Admission: No
[2019-10-17] MEDS: ASPIRIN EC 81 MG TABLET PO (09:19)
[2019-10-17] MEDS: OXYCODONE IR 5 MG TABLET PO (09:19)
[2019-10-17] MEDS: polyethylene glycoL 3350 17 GM POWD.PACK PO (09:19)
[2019-10-17] MEDS: POTASSIUM CHLORIDE 10 MEQ TAB PO (09:19)
[2019-10-17] MEDS: CARBIDOPA-LEVODOPA 25/100 TABLET 1 EACH PO (09:19)
[2019-10-17] MEDS: DOCUSATE 100 MG CAPSULE PO (09:20)
[2019-10-17] MEDS: ACETAMINOPHEN 325 MG TABLET 650 MG PO (09:20)
[2019-10-17] MEDS: FUROSEMIDE 40 MG TABLET PO (09:20)
[2019-10-17 09:29] LABS: COVID19 -Nasal RAPID Negative (Negative)
[2019-10-17] MEDS: BISACODYL 10 MG SUPP PR (09:56)
--- NOTE | 2019-10-17 10:39 | PC.NURSE ---
Day shift: Report given to Corine TORRES at [facility] at this time. D/c packet is completed. Pt has all personal belongings. Michael dressing in tact and functioning proper.
--- NOTE | 2019-10-17 10:44 | PT.IPTN ---
Current Diagnoses Bilateral primary osteoarthritis of knee (10/14/19) Surgery Performed Operation Date: 10/13/19 12:45 Actual Procedures p Total Knee Arthroplasty(Left) - Lloyd Woodson MD Physical Therapy Treatment Note M2 PT-IP Current Condition Start: 10/14/19 12:20 Freq: NEEDED Status: Discharge Protocol: Document 10/14/19 09:36 AB (Rec: 10/14/19 12:36 AB [email or web address]) Physical Therapy Current Condition Current Condition Evaluation Date 10/14/19 Treatment Diagnosis s/p L TKA; difficulty in walking Onset Date 10/13/19 Weight Bearing Status Weight Bearing Status Weight Bear as Tolerated Allowed Weight Bearing Amount (enter % LLE WBAT or #) (%) M3 PT-IP Subjective Start: 10/14/19 12:20 Freq: NEEDED Status: Discharge Protocol: Document 10/17/19 10:04 [facility] (Rec: 10/17/19 12:38 [facility] [id number]) Subjective Physical Therapy Visit Type Type Treatment Note Visit Start Time 10:04 Visit Stop Time 10:44 Total Visit Minutes 30 Notes Split treatment [id number] pt requested time to use [facility] returned to room [id number] to complete tx. Number of FACILITY ENVIRONMENTAL TECHNICIAN Visits 1 Physical Therapy Visit Comments Patient Comments pt is agreeable to do PT Therapy Pain Assessment Pain When Pain Assessed At Rest Pain Present Pain Present Pain Reported Location Left Knee Intensity 3 Scale Used 3/10 at rest, 3/10 with activity Pain Management Techniques Apply Cold,Distraction, Modification of Treatment, Timing of Activity with Medications M4 PT-IP Mobility and Gait Start: 10/14/19 12:20 Freq: NEEDED Status: Discharge Protocol: Document 10/17/19 10:04 [facility] (Rec: 10/17/19 12:38 [facility]B [id number]) PT-Transfer Assessment Sit to and From Stand Sit to and from Stand Contact Guard Assistance,1 Person Assistance,Use of Upper Extremities Equipment Transfer Assistive Device Gait Belt,Front Wheeled Walker Orthotic/Prosthetic Devices or Brace: No Transfers Transfer Destination Bed,Bedside Commode Transfer Technique Stand Step Pivot Transfer Ability Level of Assist Contact Guard Assistance, Minimal Assistance,1 Person Assistance,Use of Upper Extremities Comments Mobility Comments Pt sitting in chair upon arrival, pt scooted to the edge of chair SBA, pt performed HS. Pt requested to transfer to BSC to have BM. Pt stood CGA-Min A with cues for hand and foot placement for safety. Pt able to stand CGA then required Min A in stand and cues for posture as pt readjusted feet for steady posture. Pt then performed stand step pivot to BSC with cues for backing up until legs touched BSC. Pt was left with call light on BSC, RN informed. After returning to room pt stood from SBA CGA with cues for proper hand placement, MAP CLERK performed pericare. Pt ambulated ~20ft in room requiring CGA to Min A . Pt returned to chair for theraputic exercises. Left pt in chair with call light and all needs within reach, RN informed. Gait Assessment Gait Gait Assistance Required: Contact Guard Assist,Minimum Assistance,1 Person Assist Distance (Feet) 20 Able to Maintain Weight Bearing Status Yes During Gait Assistive Devices Assistive Device Gait Belt,Front Wheeled Walker Orthotic/Prosthetic Devices or Brace: No Gait Deviations General Gait Pattern Antalgic,Decreased Stride Length,Decreased Feet Clearance,Step-to Gait Factors Limiting Gait Function Factors Limiting Gait Function Decreased Activity Tolerance, Decreased Strength,Difficulty Following Directions,Limited Range of Motion,Pain,Poor Balance,Poor Safety Awareness Comments Gait Comments pls refer to mobility section for details. M5 PT-IP Objective Assessments Start: 10/14/19 12:20 Freq: NEEDED Status: Discharge Protocol: Document 10/14/19 09:36 AB (Rec: 10/14/19 12:36 AB [id number]) Orientation Orientation/Cognition Level of Alertness Alert Orientation Name,Place,Situation Language Function Ability Hard of Hearing Safety Awareness Decreased Safety Awareness Gross Range of Motion Lower Extremity ROM Assessment Left Impaired Impairments PROM: L knee flexion: ~ 50 deg Strength Lower Extremity Strength Assessment Bilaterally Impaired Comments Strength Comments RLE: 3+/5 LLE: 3+/5 Sensation Assessment Sensation Light Touch Impaired Proprioception (Position) Impaired Sensation Description Numbness Comments Sensation Comments stated decrease sensation on B feet and sometimes increases up to midleg area M6 PT-IP Treatment Start: 10/14/19 12:20 Freq: NEEDED Status: Discharge Protocol: Document 10/17/19 10:04 [facility] (Rec: 10/17/19 12:38 [facility] [id number]) Physical Therapy Treatment Exercises Exercises Quad Sets,Heel Slides,Straight Leg Raises,Short Arc Quads, Passive Knee Extension Hang Knee ROM Measurement 80 Education Education Provided Safety M7 PT-IP Assessment and Plan Start: 10/14/19 12:20 Freq: NEEDED Status: Discharge Protocol: Document 10/17/19 10:04 [facility] (Rec: 10/17/19 12:38 [facility] [id number]) PT Summary Assessment and Plan Potential Rehabilitation Potential Good Summary Impairments Pain,ROM,Strength,Balance, Coordination,Sensation,Tone, Cognition,Bed Mobility, Transfers,Gait,Activity Tolerance Progress Towards Goals Slow Progress due to Activity Tolerance Assessment Summary Pt improving with sit-stand and transfer ability but continues to required max cues for technique and safety. Goals Bed Mobility Goal Independent Transfer Goal Contact Guard Assistance,Front Wheeled Walker Gait Goal Contact Guard Assistance,Front Wheel Walker Gait Distance 100 Other Goals up/down 1 step using FWW CGA Days to Meet Goals 5 Frequency of Treatment Frequency Of Treatment Twice a Day Treatment Plan Physical Therapy Treatment Plan Bed Mobility Training,Transfer Training,Gait Training, Therapeutic Exercise,Balance Retraining,Post Op Education, Discharge Planning,Hot or Cold Pack,Neuromuscular Re-ed, Coordination Retraining,Manual Therapy Recommendations To Nursing Amount of Assist Needed 1 Person Assist Discharge Recommendations PT Discharge Recommendations SNF Rehab Transportation Needs at Discharge Wheelchair/Cabulance
--- NOTE | 2019-10-17 10:58 | PC.NURSE ---
Day shift: Left unit in WC w/ SNF person at approx 1105. Pt has all personal belongings and her CPAP unit.
--- NOTE | 2019-10-17 11:47 | CM.DPC ---
DCP SNF Discharge Per Ortho MD, pt medically stable to d/c to SNF today and no identified barriers to discharge. COVID 19 test completed this morning and returned negative. RIDDHI called [facility] admissions [place] and confirmed they can still accept today around 1100 and SW faxed COVID, PASRR, med rec, script, d/c MD lakia orders to [facility] to review. RIDDHI updated SEO ASSOCIATE and RN and per CARTON STAPLER Harini pt aware of d/c around 1100 to [facility] and agreeable and pt made progress with transfers today and will greatly benefit from SNF before return home. Plan: Patient to d/c via w/c van at 1100 to [facility] prior to safe d/c home with spouse. Yuki Garcia MSW
--- NOTE | 2019-10-25 13:09 | PM.DS.1 ---
History of Present Illness History of Present Illness Chief complaint: Left Total Knee Arthroplasty *OPB* Narrative: The patient presents today for total knee arthroplasty after failure of conservative treatment. The nature of the procedure including the risks and benefits, alternatives, postoperative course and expected outcome were discussed and all questions answered. Consent was obtained. Operative site confirmed and marked. Discharge Providers Provider Date of admission: 10/14/19 11:49 Discharge Date: 10/17/19 Primary care physician: Nazario Marie MD Consults: 10/13/19 15:37 Consult to Discharge Planning Routine Comment: Consult to Physical Therapy Evaluate & Treat Comment: Physician Instructions: postop TKA protocol Consult to Respiratory Therapy Evaluate & Treat Comment: Physician Instructions: Evaluate and treat 10/15/19 11:38 Consult to Occupational Therapy Evaluate & Treat Comment: Physician Instructions: Evaluate and treat Discharge provider: To Delcid PA-C Exam Vital Signs (past 8 hours): Oxygen Delivery Method CPAP Oxygen Flow Rate 0 Objective Labs Result Diagrams: 10/14/19 05:25 Discharge Assessment & Plan Assessment and Plan Assessment: Discharge to alf facility. Addendum: Patient discharged on 10/17/2019 Discharge Plan Discharge Plan Patient Disposition: SNF Transfer to: [facility] Under care of provider: Dr. Woodson Consult as needed: Dental, Hearing, Podiatry and Vision Discharge comment: DC to SNF in stable condition status post left TKA Discharge orders & Medications Prescriptions: New acetaminophen 325 mg Tablet 650 mg PO TID Qty: 60 RF: 0 aspirin 81 mg Tablet,Delayed Release (Dr/Ec) 81 mg PO BID Qty: 60 RF: 0 ibuprofen 400 mg Tablet 400 mg PO Q4HR Qty: 60 RF: 0 docusate sodium [DOK] 100 mg Capsule 100 mg PO BID Qty: 20 RF: 0 oxycodone 5 mg Tablet 5 mg PO Q3HR PRN (Reason: Pain, Moderate (4-6)) Qty: 60 RF: 0 Continued potassium chloride 10 mEq Capsule, Extended Release 10 meq PO BID RF: 0 furosemide 80 mg Tablet 40 mg PO DAILY RF: 0 carbidopa-levodopa 25-100 mg Tablet 1 tab PO SEEINSTR RF: 0 Discontinued acetaminophen [Acetaminophen Pain Relief] 500 mg Tablet 1,000 mg PO DAILY RF: 0 ibuprofen 200 mg Tablet 200 - 400 mg PO DAILY RF: 0 Follow up/Referrals: Lloyd Woodson MD [Physician] - 2 Weeks Nazario Marie MD [Primary Care Provider] - Discharge Health Status Multidrug resistant organism: No MDRO Precautions: [place] Diet/Activity/Treatments Diet: Regular Liquid consistency: Normal/Thin Food texture: Regular Activity: May progress weight-bearing and activity as tolerated. Daily knee range of motion exercises. Cold/Heat Therapy: May ice the knee for 20 minutes at a time as needed for pain Skin/Wound/Dressing Care Report to your healthcare provider any signs of infection, such as:: chills, fever, increased pain, unusual drainage and unusual redness Dressing: May leave dressing in place for 7 days. May shower over the dressing. Special Rehabilitation Services Reason for rehabilitation: Post-operative therapy and Recovery r/t decondition Rehab type: Physical therapy Visit Report/Discharge Packet Instructions: DI for Knee Replacement, How to Prevent Falls, DI for Prescription Opioid Use, Stool Softeners Stand Alone Forms: Surgery Discharge Discharge Data Primary Care Provider: Nazario Marie Discharges patient from system. Discharge Date/Time: 10/17/19 11:03 Quality VTE Deep Vein Thrombosis/Pulmonary Embolism Present on Admission: No
== END 2019-10-17 11:03 | DRG 470 ==
LOC: OR 13:01 → AC 13:01
PROVIDERS: Orthopaedic Surgery; Admitting Provider Orthopaedic Surgery; Family Provider Family Medicine; PCP Family Medicine; Referring Provider Family Medicine; Visit Provider Orthopaedic Surgery
PROC: 0SRD0JZ Replacement of Left Knee Joint with Synthetic Substitute, Open Approach (ICD-10-PCS; CPT 27447; principal; 2019-10-13 12:45)
DX: M17.12 Unilateral primary osteoarthritis, left knee (principal); G20 Parkinson's disease; F02.80 Dementia in other diseases classified elsewhere, unspecified severity, without behavioral disturbance, psychotic disturbance, mood disturbance, and anxiety; I10 Essential (primary) hypertension; G47.33 Obstructive sleep apnea (adult) (pediatric); F32.9 Major depressive disorder, single episode, unspecified; Z87.891 Personal history of nicotine dependence
CPT/HCPCS: 36415; 73560; 85014; 85018; 87635; 97110; 97116; 97162; 97165; 97530; 97535; C1776; C9290; J0690; J1100; J2250; J2405; J2704; J3010

== ENCOUNTER → 2019-10-27 08:44 | Outpatient (ROUT) | payer MEDICARE, SELFPAY ==
[2019-10-13 15:49] VITALS: BMI 33.1
[2019-10-29 09:08] LABS: COVID19 Sendout Not Detected (Not Detected)
== END ==
PROVIDERS: Family Provider Family Medicine; PCP Family Medicine; Visit Provider Internal Medicine
DX: Z11.59 Encounter for screening for other viral diseases (principal)
CPT/HCPCS: 87635